=== PATIENT | female | born 1970 | race Two or more races ===

== ENCOUNTER 2018-04-29 00:11 | Emergency (ER) | payer SELFPAY ==
[~2018-04-29] VITALS: Ht 160 cm; Wt 63.0 kg
[2018-04-29] MEDS ORDERED: ACETAMINOPHEN 325MG TABLET PO STA (04:59)
[2018-04-29 05:36] LABS: BASOPHILS % 0.3 % (0.0-2.0); EOSINOPHILS % 0.9 % (0.0-5.0); HEMATOCRIT. 40.2 % (36.0-48.0); HEMOGLOBIN. 13.9 g/dL (12.0-16.0); LYMPHOCYTES % 21.4 % (20.0-50.0); MEAN CORPUSCULAR HEMOGLOBIN 30.2 pg (28.0-32.0); MEAN CORPUSCULAR VOLUME 87.7 fL (81.0-99.0); MEAN PLATELET VOLUME 7.1 fl (7.4-10.4); NEUTROPHILS % 71.4 % (40.0-76.0); PLATELET 318 x1000/uL (130-400); RED BLOOD CELL COUNT 4.59 mill/uL (4.2-5.4); RED CELL DISTRIBUTION WIDTH 13.8 % (11.6-14.6)
[2018-04-29 05:39] LABS: CHLORIDE 106 mEq/L (98-107)
[2018-04-29 05:42] LABS: PROTHROMBIN TIME 10.5 sec (9.4-11.6)
[2018-04-29 05:50] LABS: CLARITY URINE CLEAR (CLEAR); COLOR URINE YELLOW (YELLOW); KETONES URINE NEGATIVE (NEGATIVE); LEUKOCYTE ESTERASE URINE 2+ (NEGATIVE); NITRITE URINE NEGATIVE (NEGATIVE); OCCULT BLOOD URINE NEGATIVE (NEGATIVE); PH URINE 7.5 (4.5-8.0); PROTEIN URINE NEGATIVE (NEGATIVE)
[2018-04-29] MEDS ORDERED: ONDANSETRON 4MG ODT PO STA (06:39)
[2018-04-29 06:43] LABS: *AMPHETAMINES SCREEN URINE NEGATIVE (NEGATIVE); *BARBITURATES SCREEN URINE NEGATIVE (NEGATIVE); *BENZODIAZEPINES SCREEN URINE NEGATIVE (NEGATIVE); *COCAINE SCREEN URINE NEGATIVE (NEGATIVE)
[2018-04-29 06:44] LABS: CANNABINOID URINE SCREEN NEGATIVE (NEGATIVE); METHADONE URINE SCREEN NEGATIVE (NEGATIVE); OPIATES URINE SCREEN NEGATIVE (NEGATIVE); PHENCYCLIDINE URINE SCREEN NEGATIVE (NEGATIVE)
[2018-04-29 07:16] LABS: HCG SCREEN NEGATIVE
[2018-04-29 08:32] VITALS: BP 110/62
== END 2018-04-29 08:35 | disposition home or self-care (01) ==
LOC: ER 00:11
DX: N39.0 Urinary tract infection, site not specified (principal); K56.41 Fecal impaction; D25.9 Leiomyoma of uterus, unspecified
CPT/HCPCS: 36415; 74176; 80053; 80305; 81003; 83690; 84703; 85025; 85610; 99285; Q0162

== ENCOUNTER 2025-04-14 18:08 | Emergency (ER) | payer SELFPAY ==
[~2025-04-14] VITALS: Ht 152.4 cm; Wt 61.0 kg
[2025-04-14 18:17] VITALS: TEMP 36.8; O2SAT 99
[2025-04-14] MEDS: ACETAMINOPHEN 325MG TABLET PO ONE (20:27)
[2025-04-14] MEDS: LIDOCAINE 5% PATCH TOP SCH (20:32)
[2025-04-14] MEDS ORDERED: CYCL10TA21 MT (21:18)
[2025-04-14] MEDS ORDERED: IBUP-2029 MT (21:18)
[2025-04-14] MEDS ORDERED: LIDO-53 TP (21:18)
[2025-04-14 21:32] VITALS: BP 139/78; PULSE 69; RESP 20; O2SAT 100
== END 2025-04-14 22:15 | disposition home or self-care (01) ==
LOC: ER 18:08
DX: R07.89 Other chest pain (principal)
CPT/HCPCS: 71046; 93005; 99283